=== PATIENT | female | born 1980 | race Caucasian/White ===

== ENCOUNTER 2017-12-15 04:52 | Day surgery (SDC) | payer OTHER ==
[2017-12-13 17:47] VITALS: BMI 24.6
--- NOTE | 2017-12-15 07:44 | HP ---
Past Medical History - Primary Care Physician PCP:: Patel Auguste - Admission Chief Complaint: menometrorrhagia, EM polyp History of Present Illness: 37 yo f with hx of irregular menses, heavy menses ,sono showed EM polyp admitted for hysteroscopy D&C, poltpectomy, rba discussed History Source: Patient Limitations to Obtaining History: No Limitations - Past Surgical History Hx Myomectomy: No Hx Transabdominal Cerclage: No - Smoking History Smoking history: Never smoked Have you smoked in the past 12 months: No - Alcohol/Substance Use Hx Alcohol Use: Yes (RARE) - Social History History of Recent Travel: No Home Medications - Allergies Allergies/Adverse Reactions: Allergies Allergy/AdvReac Type Severity Reaction Status Date / Time No Known Drug Allergies Allergy Verified 12/13/17 17:41 - Home Medications Home Medications: Ambulatory Orders Ferrous Sulfate [Iron] 325 mg PO DAILY 12/13/17 Review of Systems - Review of Systems Constitutional: reports: No Symptoms Eyes: reports: No Symptoms HENT: reports: No Symptoms Neck: reports: No Symptoms Cardiovascular: reports: No Symptoms Respiratory: reports: No Symptoms Gastrointestinal: reports: No Symptoms Genitourinary: reports: Vaginal Bleeding Breasts: reports: No Symptoms Reported Musculoskeletal: reports: No Symptoms Integumentary: reports: No Symptoms Neurological: reports: No Symptoms Endocrine: reports: No Symptoms Hematology/Lymphatic: reports: No Symptoms Psychiatric: reports: No Symptoms Physical Exam-CARDIAC TECHNOLOGIST Vital Signs: Vital Signs Temperature 98.0 F 12/15/17 07:15 Pulse Rate 69 12/15/17 07:15 Respiratory Rate 16 12/15/17 07:15 Blood Pressure 112/73 12/15/17 07:15 O2 Sat by Pulse Oximetry (%) 99 12/15/17 07:16 Constitutional: Yes: Well Nourished, No Distress, Calm Eyes: Yes: WNL, Conjunctiva Clear, EOM Intact HENT: Yes: WNL, Atraumatic, Normocephalic Neck: Yes: WNL, Supple, Trachea Midline Cardiovascular: Yes: WNL, Regular Rate and Rhythm Respiratory: Yes: WNL, Regular, CTA Bilaterally Gastrointestinal: Yes: WNL ...Rectal Exam: Yes: WNL Renal/: Yes: WNL Pelvis: Yes: WNL External Genitalia: Yes: Normal Vaginal Exam: Yes: Normal Cervix: Yes: Normal Uterus: Yes: Enlarged, Lumpy Adnexa: Not Palpable: Left, Right Breast(s): Yes: WNL Musculoskeletal: Yes: WNL Extremities: Yes: WNL Edema: No Integumentary: Yes: WNL Neurological: Yes: WNL, Alert, Oriented ...Motor Strength: WNL Psychiatric: Yes: WNL, Alert, Oriented Problem List - Problem (1) Menometrorrhagia Code(s): N92.1 - EXCESSIVE AND FREQUENT MENSTRUATION WITH IRREGULAR CYCLE (2) Fibroid uterus Code(s): D25.9 - LEIOMYOMA OF UTERUS, UNSPECIFIED Qualifiers: Uterine leiomyoma location: intramural Qualified Code(s): D25.1 - Intramural leiomyoma of uterus (3) Endometrial polyp Code(s): N84.0 - POLYP OF CORPUS UTERI Assessment/Plan hysteroscopy D&C , polypectomy.
[2017-12-15] MEDS ORDERED: PROPOFOL 20 ML ONE (07:51)
[2017-12-15] MEDS ORDERED: MIDAZOLAM HCL 2 MG/2 ML SINGLE DOSE VIAL ONE (07:51)
[2017-12-15] MEDS ORDERED: SUCCINYLCHOLINE CHLORIDE 200 MG/10 ML VIAL ONE (07:51)
[2017-12-15] MEDS ORDERED: DEXAMETHASONE SOD PHOSPHATE 4 MG/1 ML VIAL ONE (08:10)
[2017-12-15] MEDS ORDERED: KETOROLAC TROMETHAMINE 30 MG/1 ML VIAL ONE (08:10)
[2017-12-15] MEDS ORDERED: oxyCODONE HCL 5 MG TABLET PO PRN (08:18)
[2017-12-15] MEDS ORDERED: PROMETHAZINE HCL 25 MG/1 ML VIAL IVPB PRN (08:18)
[2017-12-15] MEDS ORDERED: ONDANSETRON 4 MG/2 ML VIAL IVPUSH PRN (08:18)
[2017-12-15] MEDS ORDERED: LACTATED RINGERS SOLUTION 1,000 ML IV SCH (08:30)
[2017-12-15] MEDS ORDERED: IBUPROFEN 600 MG TABLET (FP) PO ONE ×2 (09:59→10:30)
[2017-12-15 10:45] VITALS: TEMP 97.7
[2017-12-15 10:55] VITALS: BP 127/79; PULSE 69
--- NOTE | 2017-12-19 10:34 | PATH ---
Surgical Pathology Report Patient Name: ANTON CHERRY Med. Rec. #: [id number] /Age/Gender: 1980 (Age: 37) / F Account: [id number] Location: [facility] SURGICAL Taken: 12/15/2017 Received: 12/15/2017 Reported: 12/19/2017 Physicians: Patel Auguste M.D. Specimen(s) Received A: ENDOMETRIAL POLYP B: ENDOMETRIAL CURETTINGS Clinical History Endometrial polyp Final Diagnosis A. ENDOMETRIAL POLYP, POLYPECTOMY: CONSISTENT WITH ENDOMETRIAL POLYP. B. ENDOMETRIAL CURETTINGS: FRAGMENTS OF ENDOMETRIAL POLYP. SEPARATE FRAGMENTS OF PROLIFERATIVE TYPE ENDOMETRIUM. Electronically Signed Gallo Flores M.D. Gross Description A. Received in formalin labeled "endometrial polyp," is a 1.9 x 1.5 x 0.3 cm villa-pink, polypoid portion of soft tissue. The specimen is submitted in toto in one cassette. B. Received in formalin labeled "endometrial curettings," is a 4.5 x 2.4 x 0.3 cm aggregate of villa-brown soft tissue fragments. The formalin is filtered and the specimen is entirely submitted in 2 cassettes. /12/15/2017 saudi/12/15/2017
--- NOTE | 2017-12-19 13:12 | OP ---
DATE OF OPERATION: 12/15/2017 PREOPERATIVE DIAGNOSES: Menometrorrhagia, endometrial polyp. POSTOPERATIVE DIAGNOSES: Menometrorrhagia, endometrial polyp. PROCEDURE: Hysteroscopy, dilatation and curettage, and endometrial polypectomy. SURGEON: Patel Auguste MD ANESTHESIA: General. ESTIMATED BLOOD LOSS: Minimal. DESCRIPTION OF OPERATION: Patient was taken to the operating room. Under adequate general anesthesia, examination under anesthesia revealed the external genitalia to be normal. Vagina was normal. No lesion. The uterus was slightly prominent. The adnexa: No masses were palpable. Then, with the weighted speculum in the vagina, anterior lip of the cervix was grasped with a single-tooth tenaculum. Cervix was gradually dilated with Hegar dilator and then sounded to 9 cm. Then, the hysteroscope was introduced. Visualization of endocervical canal appeared to be normal. Endometrium was irregular and prominent. There was an endometrial polyp which was seen at the fundal area of the uterus, approximately 1-2 cm. Both cornual regions were identified. No other abnormalities were seen. The cervix was dilated, and then, endometrial polyp was removed. The endometrium was curetted. Patient tolerated the procedure well, left the OR in good condition. Pamela [id number]
== END 2017-12-15 10:35 | disposition home or self-care (01) ==
LOC: JASU-SURG 04:52
PROVIDERS: ATTEND Obstetrics & Gynecology
PROC: 0UJD8ZZ Inspection of Uterus and Cervix, Via Natural or Artificial Opening Endoscopic (ICD-10-PCS; 2017-12-15)
PROC: 0UB97ZX Excision of Uterus, Via Natural or Artificial Opening, Diagnostic (ICD-10-PCS; principal; 2017-12-15 08:00)
PROC: 0UDB7ZX Extraction of Endometrium, Via Natural or Artificial Opening, Diagnostic (ICD-10-PCS; 2017-12-15 08:00)
DX: N92.1 Excessive and frequent menstruation with irregular cycle (principal); N84.0 Polyp of corpus uteri
CPT/HCPCS: 84703; 88305-TC; 94760

== ENCOUNTER 2020-09-29 04:14 | Day surgery (SDC) | payer OTHER ==
[2020-09-25 16:42] VITALS: BMI 26.9
[2020-09-29] MEDS ORDERED: DEXAMETHASONE SOD PHOSPHATE 4 MG/1 ML VIAL ONE (07:18)
[2020-09-29] MEDS ORDERED: ONDANSETRON 4 MG/2 ML VIAL ONE ×2 (07:18→08:31)
[2020-09-29] MEDS ORDERED: LIDOCAINE HCL/PF 2% SDV 5ML VIAL ONE ×2 (07:18→08:31)
[2020-09-29] MEDS ORDERED: PROPOFOL 20 ML ONE (07:19)
[2020-09-29] MEDS ORDERED: MIDAZOLAM HCL 2 MG/2 ML SINGLE DOSE VIAL ONE (07:19)
[2020-09-29] MEDS ORDERED: SUCCINYLCHOLINE CHLORIDE 200 MG/10 ML SYRINGE ONE (07:23)
[2020-09-29] MEDS ORDERED: EPHEDRINE SULFATE/0.9% NACL/PF 50 MG/10 ML SYRINGE NR ONE (08:25)
[2020-09-29] MEDS ORDERED: ONDANSETRON 4 MG/2 ML VIAL IVPUSH PRN (09:09)
[2020-09-29] MEDS ORDERED: IBUPROFEN 600 MG TABLET (FP) PO PRN (09:09)
[2020-09-29] MEDS ORDERED: IBUPROFEN 800 MG/8 ML IJ IVPB PRN (09:09)
[2020-09-29] MEDS ORDERED: oxyCODONE HCL 5 MG TABLET PO PRN (09:09)
[2020-09-29] MEDS ORDERED: ELECTROLYTE-148 SOLN 1,000 ML IV SCH (09:15)
[2020-09-29] MEDS ORDERED: LACTATED RINGERS SOLUTION 1,000 ML IV SCH (09:30)
[2020-09-29 10:23] VITALS: TEMP 97.8
[2020-09-29 12:57] VITALS: BP 101/67; PULSE 80
== END 2020-09-29 12:20 | disposition home or self-care (01) ==
LOC: JASU-SURG 04:14
PROVIDERS: ATTEND Obstetrics & Gynecology
PROC: 0UJD8ZZ Inspection of Uterus and Cervix, Via Natural or Artificial Opening Endoscopic (ICD-10-PCS; 2020-09-29)
PROC: 0UB97ZX Excision of Uterus, Via Natural or Artificial Opening, Diagnostic (ICD-10-PCS; principal; 2020-09-29 08:00)
PROC: 0UDB7ZX Extraction of Endometrium, Via Natural or Artificial Opening, Diagnostic (ICD-10-PCS; 2020-09-29 08:00)
DX: N92.1 Excessive and frequent menstruation with irregular cycle (principal); N84.0 Polyp of corpus uteri
CPT/HCPCS: 81025; 88305-TC; 94760